=== PATIENT | male | born 2000 | race Hispanic/Latino ===

== ENCOUNTER 2024-12-15 01:04 | Emergency (ER) | payer SELFPAY ==
[~2024-12-15] VITALS: Ht 167.6 cm; Wt 90.7 kg
[2024-12-15 02:01] VITALS: BP 117/88; PULSE 66; RESP 20; TEMP 98.6; O2SAT 100
--- NOTE | 2024-12-15 02:15 | ERN ---
General Chief Complaint: Foreign Body Stated Complaint: F/O LEFT EYE Time Seen by MD: 01:07 Time Seen by Midlevel: 01:07 Source: patient History of Present Illness Initial Comments Patient is a 24-year-old male with no significant past medical history presenting to the emergency department with a foreign body sensation to his left eye. 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 Yesterday he felt something in his left eye. Associated symptoms include redness and irritation. He attempted to rinse his eye multiple times at home but decided to report to the ER after his irrigation failed. Allergies: Coded Allergies: No Known Allergies (Unverified Allergy, Unknown, 12/15/24) Past Medical History Past Medical History: No Pertinent History Past Surgical History: None ROS Dictation CONSTITUTIONAL: Negative except for HPI HEAD/FACE: Negative except for HPI EENT: Negative except for HPI RESPIRATORY: Negative except for HPI GASTROINTESTINAL/ABDOMINAL: Negative except for HPI GENITOURINARY: Negative except for HPI MUSCULOSKELETAL: Negative except for HPI INTEGUMENTARY: Negative except for HPI NEUROLOGICAL/PSYCH: Negative except for HPI HEMATOLOGIC/LYMPHATIC: Negative except for HPI All Systems Negative, Except as noted above. 13 point review of systems assessed and all negative except for above. Physical Exam Physical Exam Dictation PHYSICAL EXAM: GENERAL: alert,, awake oriented x 3 HEENT: EOMI, Sclera non icteric, moist mucosa, corneal abrasion NECK: Supple, no JVD, trachea midline LUNGS: Clear breath sounds bilaterally. No wheezes HEART: Regular rate and rhythm. Normal S1 and S2, without murmurs ABD: Abdomen soft, nontender. Bowel sounds present EXT: No clubbing or cyanosis, NEURO: Alert and oriented to person, follows commands MDM MDM: Patient is a 24-year-old male with no significant past medical history presenting to the emergency department with a foreign body sensation to his left eye. 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 Yesterday he felt something in his left eye. Associated symptoms include redness and irritation. He attempted to rinse his eye multiple times at home but decided to report to the ER after his irrigation failed. On physical examination patient is in no acute distress. There was an obvious foreign body overlying the cornea. We applied 2-3 drops of tetracaine to the left eye. A fluorescein strip was added. The left eye was viewed with a Wood's lamp. There is an obvious foreign body. I was able to partially remove the foreign body with a wet cotton swab. The patient was given TobraDex in the emergency department and was advised to follow up with [facility] [place] tomorrow for repeat evaluation. Differential diagnosis: Corneal abrasion corneal corneal ulceration, foreign body There are no social concerns with this patient. Prescription drug management Prescriptions will include: TobraDex Medical management and examination interpretation discussions were had by me with other qualified healthcare professionals as indicated for the patient's care. ED Course Orders Procedure Category Date Status Time Tetracaine Hcl PHA 12/15/24 In Process (Pontocaine 0.5% 01:30 Fluorescein Sodium PHA 12/15/24 In Process (Frvwa-H-Gxygp At) 01:30 Tobramycin PHA 12/15/24 In Process Sulf/Dexamethasone 02:30 Current Medications Medications (Trade) Dose Ordered Sig/Rajwinder Route PRN Reason Start Time Stop Time Status Last Admin Dose Admin Fluorescein Sodium (Qxhpj-C-Bdwzy At) 1 strip ONCE OP 12/15/24 01:30 01/14/25 01:29 Tetracaine HCl (Pontocaine 0.5% Ophth Soln) 1 OR 2 DROPS ONCE OP 12/15/24 01:30 01/14/25 01:29 Tobramycin/ Dexamethasone (TobraDEX EYE DROPS) 1 DROP ONCE OD 12/15/24 02:30 01/14/25 02:29 UNV Vital Signs Date Time Temp Pulse Resp B/P (MAP) Pulse Ox O2 Delivery O2 Flow Rate FiO2 12/15/24 02:01 98.6 66 20 117/88 100 Room Air* 0 21 12/15/24 01:06 97.9 58 16 131/74 100 Room Air DX & DISP Disposition: Discharge Departure Impression: Primary Impression: Corneal abrasion, left Condition: Stable Additional Instructions: Please follow up with [facility] [place] in [facility]. Address: [address], [facility] [address] Referrals: NONE (PCP) Time of Disposition: 02:13 I have reviewed the case, and I agree with, Diagnosis and Plan I performed the substantive portion of the visit. I have reviewed and personally made and approve the management plan that is documented in the note by myself or the VIJI. I acknowledge for responsibility for the patient's management plan. SUSAN CENTENO Dec 15, 2024 02:15
[2024-12-15] MEDS: FLUORESCEIN SODIUM 1 STRIP STRIP OP SCH (02:29)
[2024-12-15] MEDS: TobRAMYCin/DEXAmethASONE OPTH SUSP 2.5 ML BOT OD ONE (02:29)
[2024-12-15] MEDS: TETRACAINE HCL 0.5% 4 ML OPHTH SOLN OP SCH (02:29)
== END 2024-12-15 02:30 | disposition home or self-care (01) ==
LOC: EDH 01:04
DX: T15.02XA Foreign body in cornea, left eye, initial encounter (principal); W44.8XXA Other foreign body entering into or through a natural orifice, initial encounter; Y93.89 Activity, other specified; Y92.89 Other specified places as the place of occurrence of the external cause; Y99.8 Other external cause status
CPT/HCPCS: 65220; 99284